=== PATIENT | female | born 1955 | race Caucasian/White ===

== ENCOUNTER 2020-11-13 15:22 | Outpatient (CLI) | payer MEDICARE, MEDICAID, SELFPAY ==
--- NOTE | 2020-11-13 15:29 | USCV_ITS ---
HessRenata quezada Age: 65 Gender: F : 1955 Exam Date: 11/13/2020 15:22 Ordering Phys: Delmi Ruiz APN Technologist: Evelyn Cadet [place] [facility] [place]: BLE PAIN RIGHT LEFT Brachial 125.00 mmHg Brachial 127.00 mmHg Pressure (mmHg) Waveform Pressure (mmHg) Waveform 109.00 MEDICAL MASSAGE THERAPIST 137.00 107.00 DPA 138.00 0.86 Ankle/Brachial Index 1.09 50.00 Pre-Exercise Toe Pressure 72.00 0.39 Pre-Exercise Toe/Brachial Index 0.57 FINDINGS Resting JERSON of 0.86 on the right side and 1.09 on the left side. Resting TBI of 0.39 on the right side and 0.57 on the left side CONCLUSIONS 1. Features of mild to moderate peripheral artery disease in the right side 2. Features of mild peripheral artery disease on the left side, involving the distal vessels. Dr Sesar Kearns MD [facility] (Electronically Signed) Final Date: 14 November 2020 00:18 S
== END 2020-11-13 15:23 | disposition home or self-care (01) ==
LOC: US 15:24
PROVIDERS: PCP Family Medicine; Visit Provider Nurse Practitioner
DX: M79.605 Pain in left leg (principal); M79.604 Pain in right leg
CPT/HCPCS: 93922

== ENCOUNTER 2023-06-23 09:46 | Outpatient (CLI) | payer MEDICARE, MEDICAID, SELFPAY ==
--- NOTE | 2023-06-23 10:08 | NMCV_ITS ---
NM alonos perf SPECT r/s* [id number] Renata Hess Age: 68 Gender: F : 1955 Exam Date: 06/23/2023 10:08 Ordering Phys: Megan Tyler MD Technologist: VICKY Gonzalez Exam Location: [facility] Indications: CHEST PAIN STRESS TEST Please see separate stress test report in [facility] for full findings IMAGE PROTOCOL Rest/Stress 1 Lexiscan Day Radiopharmaceutical Dose (mCi) Administration Site Administered by Rest: Tc-99m 10.4 IV VICKY Rapp Sestamibi Stress:Tc-99m 32.9 IV VICKY Rapp Sestamibi Rest: 23-Jun-2023 60 Discovery 630 Stress: 23-Jun-2023 30 Discovery 630 0.4mg Lexiscan. Images obtained in supine and prone position. SPECT RESULTS Technical Quality: Excellent Raw Data Analysis: Normal Image Corrections: No attenuation or motion correction applied Summed Stress Score: 5 Summed Rest Score: 7 Summed Difference Score: 0 PERFUSION FINDINGS There is a small to medium sized area of fixed perfusion defect noted in inferolateral and inferior wall. This is consistent with small to moderate sized area of prior infarct in these territories. No significant ischemia seen. FUNCTIONAL RESULTS (calculated via Gated SPECT) Stress Image LV EF (%): 75 Stress EDV (mL):65 TID: 0.79 Stress ESV (mL):16 FUNCTIONAL FINDINGS: There is normal left ventricular systolic function. IMPRESSIONS 1. Small to medium sized area of prior infarct seen in the inferior and inferolateral lockwood. No evidence of ischemia 2. LV systolic function is normal Donovan Crowley MD (Electronically Signed) Final Date: 24 June 2023 11:56 S
--- NOTE | 2023-06-23 10:08 | ECG_ITS ---
[facility] Test Date: 2023-06-23 Pat Name: Renata Hess Department: Room: Gender: Female Rail Walker: : 1955 Requested By: Megan George Order Number: [id number] Piper MD: Donovan Crowley M.D. Interpretive Statements NAME OF STUDY: LEXISCAN SESTAMIBI STRESS TEST INDICATION: [Chest Pain, ] Procedure: At the baseline, the blood pressure was 176/81 mmHg with a heart rate of 74 bpm. The electrocardiogram showed normal sinus rhythm, normal axis with normal ST and T's. The Lexiscan was infused over a period of 20 seconds. A total of 0.4 mg of Lexiscan was infused. The stress phase was continued for a total of 5 minutes. Heart rate was at the end of stress phase was 100 bpm and a blood pressure of 190/79 mmHg. The EKG at the peak infusion revealed normal sinus rhythm with no significant ST-T wave changes. Sestamibi was injected 20 seconds after the Lexiscan infusion. Blood pressure at the end of recovery phase was 181/76 mmHg with a heart rate of 94 bpm. Conclusion: 1. Normal EKG response to Lexiscan infusion 2. No Lexiscan induced chest pain or cardiac arrhythmia. 3. Normal blood pressure and heart rate response. 4. Sestamibi/sestamibi perfusion scan pending; see separate report. Electronically Signed On 06-30-2023 12:10:37 CDT by Donovan Crowley M.D. [email or web address]
[2023-06-23 10:09] VITALS: BMI 36.8
[2023-06-23] MEDS: regadenoson 0.4 Mg/5 ml Syringe 0.400000000000000022 MG IVP (11:29)
[2023-06-23 11:45] VITALS: BP 183/78; PULSE 96
== END 2023-06-23 09:47 | disposition home or self-care (01) ==
PROVIDERS: PCP Family Medicine; Visit Provider Family Medicine
DX: R07.9 Chest pain, unspecified (principal)
CPT/HCPCS: 36415; 78452; 93017; 96374; A9500; J2785

== ENCOUNTER → 2023-10-22 12:55 | Outpatient (BNVA) | payer MEDICARE, MEDICAID, SELFPAY | PROVIDERS: PCP Family Medicine; Visit Provider Internal Medicine | DX: R07.9 Chest pain, unspecified (principal); I21.29 ST elevation (STEMI) myocardial infarction involving other sites; E11.9 Type 2 diabetes mellitus without complications; I10 Essential (primary) hypertension; E78.5 Hyperlipidemia, unspecified; I73.9 Peripheral vascular disease, unspecified | CPT/HCPCS: 93005; 99204 ==

== ENCOUNTER 2023-11-14 14:29 | Outpatient (CLI) | payer MEDICARE, MEDICAID, SELFPAY ==
--- NOTE | 2023-11-14 15:00 | USCV_ITS ---
Renata Hess Age: 68 Gender: F : 1955 Exam Date: 11/14/2023 14:50 Ordering Phys: Donovan Crowley M.D ([email or web address]) Technologist: CT Exam Location[place] [facility] [place]ication: BP: 138 / 74 HR: 72 Rhythm: Sinus Technical Quality: Adequate MEASUREMENTS (Male / Female) Normal Values 2D ECHO LVOT Diameter 2.0 cm LV Ejection Fraction MOD 4C 51.4 % LV Ejection Fraction MOD 2C 70.4 % LV Ejection Fraction 2C AL 68.6 % LA Diameter 3.6 cm RA Systolic Volume 4C AL 37.7 ml RA Systolic Volume 4C MOD 36.1 ml LA Sys Volume AL 29.8 cm cubed LA Sys Volume Index AL 14.5 cm cubed/m squared Aorta at Sinotubular Diameter 2.3 cm IVC Diameter 1.7 cm M-MODE LA Ao Ratio MM 1.9 AV Cusp Separation MM 1.3 cm DOPPLER AV Peak Velocity 178.0 cm/s LVOT Peak Velocity 90.0 cm/s AV Area Cont Eq vti 1.8 cm squared AV Area Cont Eq pk 1.6 cm squared MV Peak Velocity 91.0 cm/s MV Area PHT 3.2 cm squared Mitral E to A Ratio 0.6 TV Peak Velocity 238.5 cm/s TR Peak Velocity 300.0 cm/s TR Peak Gradient 36.0 mmHg TV Peak E Velocity 72.0 cm/s Right Atrial Pressure 3.0 mmHg Pulmonary Artery Systolic Pressu 39.0 mmHg PV Peak Velocity 69.3 cm/s FINDINGS Left Ventricle Left ventricle is normal in size. LV systolic function is normal with EF of 60-65%. No regional wall motion abnormalities are seen. Grade 1 diastolic dysfunction. Right Ventricle Normal in size and function. Right Atrium Normal in size Left Atrium Normal in size Mitral Valve Mild mitral annular calcification. Mild mitral regurgitation. Aortic Valve Aortic valve is thickened. Mild aortic regurgitation. No significant stenosis Tricuspid Valve Mild tricuspid regurgitation. Insufficient TR jet to evaluate RVSP. Pulmonic Valve Not well visualized Pericardium Normal Aorta Normal in size IVC Appears to be normal CONCLUSIONS LV systolic function is normal with EF of 60 to 65%. Grade 1 diastolic dysfunction. Mild mitral regurgitation. Mild aortic regurgitation Mild tricuspid regurgitation Donovan Crowley MD (Electronically Signed) Final Date: 21 November 2023 22:23 S
== END 2023-11-14 14:30 | disposition home or self-care (01) ==
LOC: RAD 14:30
PROVIDERS: PCP Family Medicine; Visit Provider Internal Medicine
DX: I50.30 Unspecified diastolic (congestive) heart failure (principal); I35.0 Nonrheumatic aortic (valve) stenosis; R07.9 Chest pain, unspecified; R06.02 Shortness of breath
CPT/HCPCS: 93306

== ENCOUNTER 2024-01-23 11:04 | Outpatient (CLI) | payer MEDICARE, MEDICAID, SELFPAY ==
--- NOTE | 2024-01-23 11:10 | US_ITS ---
WS: [id number] US pelvic complete* [id number] TRANSVAGINAL AND TRANSABDOMINAL PELVIC ULTRASOUNDS. HISTORY: POSTMENOPAUSAL BLEEDING COMPARISON: 01/12/2014 Uterus: 7.5 cm x 4.5 cm x 3.7 cm. Normal size postmenopausal uterus is anteverted. Small nabothian cysts identified through the cervix. Hypoechoic mass with shadowing in the RIGHT uterine fundus is most likely a fibroid. Mass measures 1 .7 x 1.9 x 1.6 cm. Endometrium: 0.9 cm. Mildly enlarged heterogeneous endometrium. Endometrium is very slightly lobulate d in the mid portion towards the fundus. The junctional zone is poorly visualized. On a few images lombardi bmitted a portion of the endometrium is slightly more hyperechoic which could represent a polyp. Right ovary: 2.4 cm x 1.6 cm x 1.8 cm. Normal size and vascularity, no cystic or solid masses. Left ovary: 2.9 cm x 1.8 cm x 1.7 cm. Normal size and vascularity, no cystic or solid masses. No free fluid in the cul-de-sac. US/US pelvic complete* [id number] IMPRESSION: 1. Abnormal endometrium. Endometrium measures 9 mm with heterogeneity througho ut. In a postmenopausal patient with bleeding this is a abnormal endometrium an d needs to be further evaluated for possible neoplasm. Recommend biopsy. 2. Small uterine fibroid towards the RIGHT uterine fundus measures 1.7 x 1.9 x 1.6 cm. 3. No ovarian mass.
== END 2024-01-23 11:05 | disposition home or self-care (01) ==
LOC: RAD 11:06
PROVIDERS: PCP Family Medicine; Visit Provider Family Medicine
DX: N85.00 Endometrial hyperplasia, unspecified (principal); D25.9 Leiomyoma of uterus, unspecified; N95.0 Postmenopausal bleeding
CPT/HCPCS: 76856

== ENCOUNTER → 2024-01-28 13:35 | Outpatient (BNVA) | payer MEDICARE, MEDICAID, SELFPAY | PROVIDERS: PCP Family Medicine; Referring Provider Family Medicine; Visit Provider Obstetrics & Gynecology | DX: N95.0 Postmenopausal bleeding (principal) | CPT/HCPCS: 87624 ==

== ENCOUNTER → 2024-05-27 10:40 | Outpatient (BNVA) | payer MEDICARE, MEDICAID, SELFPAY | PROVIDERS: PCP Family Medicine; Visit Provider Podiatrist Foot & Ankle Surgery | DX: M79.672 Pain in left foot (principal); E11.42 Type 2 diabetes mellitus with diabetic polyneuropathy; L60.3 Nail dystrophy; L84 Corns and callosities; G62.9 Polyneuropathy, unspecified; Z79.4 Long term (current) use of insulin | CPT/HCPCS: 11055; 11721; 73630; 99203 ==

== ENCOUNTER 2024-06-24 13:56 | Outpatient (CLI) | payer MEDICARE, MEDICAID, SELFPAY ==
--- NOTE | 2024-06-24 13:59 | XR_ITS ---
WS: [id number] SCREENING DEXA SCAN ebindle CLINICAL INFORMATION: asymptomatic menopuasal state COMPARISON: None. FINDINGS: The L1-L4 bone mineral density measures 1.535 g/cm2. This corresponds to a T score score of 3.0 and Z score of 3.8. Left femoral neck bone mineral density measures 1.454 g/cm2. This corresponds to a T score of 3.5 and Z score of 4.4. Right femoral neck bone mineral density measures 1.382 g/cm2. This corresponds to a T score 3.0of and Z score of 3.8. Mean femoral neck bone mineral density measures 1.418 g/cm2. This corresponds to a T score of 3.3 and Z score of 4.1. XR/XR DEXA axial skeleton* 56208 IMPRESSION: Normal bone mineralization. Patient's FRAX calculated 10 year probability for major osteoporotic fracture i s 4.9% and osteoporotic hip fracture is 0.2%.
== END 2024-06-24 13:57 | disposition home or self-care (01) ==
PROVIDERS: PCP Family Medicine; Visit Provider Family Medicine
DX: Z78.0 Asymptomatic menopausal state (principal)
CPT/HCPCS: 77080

== ENCOUNTER 2024-06-29 05:49 | Day surgery (SDC) | payer MEDICARE, MEDICAID, SELFPAY ==
--- NOTE | 2024-06-28 23:59 | PM.OBGYHP ---
Providers/Chief Complaint Admitting Physician: Jose Recio MD Primary INTERMEDIATE ACCOUNTANT: Jose Recio MD Primary Care Provider: Megan Tyler MD Chief Complaint: N95.0 HPI INTERMEDIATE ACCOUNTANT History of Present Illness Renata Hess is a 69 year old female A1 With postmenopausal bleeding And abnormal pap Now scheduled for hysteroscopy, endometrial sampling, possible endometrial polypectomy; LEEP cervical excision Medications/Allergies Home Medications ?Medication ?Instructions ?Recorded ?Confirmed ?Last Taken ?Type lisinopril 20 mg tablet 20 mg PO DAILY 05/25/19 06/28/24 06/28/24 History aspirin 81 mg tablet,delayed 81 mg PO DAILY 10/15/23 06/28/24 06/28/24 History release atorvastatin 20 mg tablet 20 mg PO DAILY 10/15/23 06/28/24 06/28/24 History fluoxetine 20 mg tablet 20 mg PO DAILY 10/15/23 06/28/24 06/28/24 History insulin aspart U-100 100 unit/mL 14 unit SUBCUT TID 10/15/23 06/28/24 06/28/24 History (3 mL) subcutaneous pen (Novolog FlexPen U-100 Insulin aspart) insulin glargine 100 unit/mL (3 40 unit SUBCUT BID 10/15/23 06/28/24 06/28/24 History mL) subcutaneous pen (Lantus Solostar U-100 Insulin) pantoprazole 40 mg tablet,delayed 40 mg PO DAILY 10/15/23 06/28/24 06/28/24 History release tirzepatide 2.5 mg/0.5 mL 2.5 mg SUBCUT .WKLY 10/22/23 06/28/24 06/21/24 History subcutaneous pen injector (Mounjaro) vit D3-folic [id number] 1 tab PO .WKLY 04/14/24 05/27/24 04/11/24 History Allergies Allergy/AdvReac Type Severity Reaction Status Date / Time No Known Allergies Allergy Verified 05/27/24 10:39 PFS INTERMEDIATE ACCOUNTANT PFSH: Medical History Type 2 diabetes mellitus PVD (peripheral vascular disease) HTN (hypertension) Gastroenteritis Hyperlipidemia Primary osteoarthritis of right knee Family History Sister Breast cancer Diabetes Heart disease Hyperlipidemia Mother Diabetes Heart disease Ovarian cancer Stroke Brother Heart disease Denies family history of Colon cancer Prostate cancer Hypertension Uterine cancer Thyroid disease Social History Smoking and tobacco/nicotine status: current every day tobacco/nicotine user History History History 1 Term 0 0 Miscarriages/Ectopic 1 Living Children 0 Physical Exam Narrative: Weight 194 lbs; 5?3? General comfortable Lungs: clear Cor: RRR Abd: soft, nontender Pelvic sono 01-23-24 uterus 7.5 cm x 4.5 cm x 3.7 cm 1.9 cm fibroid Endometrium 9 mm, heterogeneous Normal ovaries Pap 01-28-24 LGSIL, + HPV Results Labs OB ([facility]): Pap Smear Interpret See note A 01/28/24 A&P Assessment and plan (1) Postmenopausal bleeding: plan hysteroscopy, endometrial sampling, possible endometrial polypectomy explained. Procedures and risks explained to patient, including, but not limited to, risks of infection, bleeding, injury to internal organs, anesthesia, blood transfusions. One particular risk is that, in the process of dilating the cervix, the dilating instrument may perforate the uterus. Usually, the uterus heals spontaneously without any complications. Patient understands and wants to proceed with hysteroscopy, endometrial sampling, and possible endometrial polypectomy under anesthesia (2) Abnormal Pap smear of cervix: Plan LEEP cervical excision PDMP PDMP Reviewed: Not Reviewed Attestations Medical Necessity Statement*: patient with postmenopausal bleeding and abnormal pap of cervix, now scheduled for hysteroscopy, endometrial sampling and polypectomy, and electrosurgical loop excision of the cervix Coding Level of Care Code Acute Code for Chg Fwd Diagnoses Postmenopausal bleeding N95.0 Abnormal Pap smear of cervix R87.619 Time Spent (min) 30
[2024-06-29] VITALS (8 sets, daily range): BP systolic 126–175; BP diastolic 81–110; PULSE 67–103; RESP 14–18; TEMP 36.6; O2SAT 92–99; BMI 35.0
[2024-06-29] MEDS: sodium chloride 0.9% 1,000 ML 30 ML IV (06:17)
[2024-06-29 06:19] LABS: Glucose Point of Care 188 mg/dL (70-110)
--- NOTE | 2024-06-29 06:52 | W.PM.OPSUD ---
Surgery/Procedure H&P Update DATE OF PROCEDURE: June 29, 2024 DATE H&P PERFORMED: 06/29/24 H&P UPDATE INFORMATION: I have reviewed H&P completed within last 30 days, I have examined patient prior to procedure and No changes to prior documentation PREOP DIAGNOSIS: postmenopausal bleeding; abnormal pap PLANNED PROCEDURE: Operation Date: 06/29/24 07:00 Proposed Procedures p Hysteroscopy w/ Endometrial Sampling 75360, N95.0(Not Applicable) - Jose Recio MD s Poylpectomy(Not Applicable) - Jose Recio MD
--- NOTE | 2024-06-29 06:54 | ANES.PREANE2 ---
Pre-Anesthetic Assessment Height/Weight: Height 1.6 m Weight 89.811 kg Temp Pulse Resp BP Pulse Ox O2 Del Method 97.8 F 67 16 175/84 97 Room Air 06/29/24 06:08 06/29/24 06:08 06/29/24 06:08 06/29/24 06:08 06/29/24 06:08 06/29/24 06:08 Preop Diagnosis: postmenopausal bleeding; abnormal pap Operation Date: 06/29/24 07:00 Proposed Procedures p Hysteroscopy w/ Endometrial Sampling 17931, N95.0(Not Applicable) - Jose Recio MD s Poylpectomy(Not Applicable) - Jose Recio MD Familial anesthetic complications: None Was Beta Lizz taken within 24 hours: N/A Was Clonidine taken within 24 hours: N/A Last intake: Intake Last Liquid Date 06/28/24 Last Liquid Time 19:00 Last Solid Date 06/28/24 Last Solid Time 19:00 Social Tobacco and No alcohol Exam alert, oriented x 3, clear to auscultation bilaterally and regular rate & rhythm Airway Mallampati: Class II Dentition: other (no teeth) CV/HEM Hypertension GI Gastroesophageal Reflux Disease Metabolic Diabetes Mellitus and Hyperlipidemia Anesthetic Plan ASA status: 3 Anesthesia: General Risk of > 500 ml blood loss (7ml/kg in children): No Medications/Allergies Home Medications ?Medication ?Instructions ?Recorded ?Confirmed ?Last Taken ?Type lisinopril 20 mg tablet 20 mg PO DAILY 05/25/19 06/28/24 06/28/24 History aspirin 81 mg tablet,delayed 81 mg PO DAILY 10/15/23 06/28/24 06/28/24 History release atorvastatin 20 mg tablet 20 mg PO DAILY 10/15/23 06/28/24 06/28/24 History fluoxetine 20 mg tablet 20 mg PO DAILY 10/15/23 06/28/24 06/28/24 History insulin aspart U-100 100 unit/mL 14 unit SUBCUT TID 10/15/23 06/28/24 06/28/24 History (3 mL) subcutaneous pen (Novolog FlexPen U-100 Insulin aspart) insulin glargine 100 unit/mL (3 40 unit SUBCUT BID 10/15/23 06/28/24 06/28/24 History mL) subcutaneous pen (Lantus Solostar U-100 Insulin) pantoprazole 40 mg tablet,delayed 40 mg PO DAILY 10/15/23 06/28/24 06/28/24 History release tirzepatide 2.5 mg/0.5 mL 2.5 mg SUBCUT .WKLY 10/22/23 06/28/24 06/21/24 History subcutaneous pen injector (Bridget) vit D3-folic [id number] 1 tab PO .WKLY 04/14/24 05/27/24 04/11/24 History Allergies Allergy/AdvReac Type Severity Reaction Status Date / Time No Known Allergies Allergy Verified 05/27/24 10:39 Current Medications Generic Name Dose Route Start Last Admin Trade Name Freq PRN Reason Stop Dose Admin Sodium Chloride 1,000 mls @ 30 mls/hr 06/29/24 06:00 06/29/24 06:17 Sodium Chloride 0.9% IV 06/30/24 05:59 30 mls/hr .Q24H DEON Administration PFSH Anesthesia Medical History Type 2 diabetes mellitus PVD (peripheral vascular disease) HTN (hypertension) Gastroenteritis Hyperlipidemia Primary osteoarthritis of right knee Family History Sister Breast cancer Diabetes Heart disease Hyperlipidemia Mother Diabetes Heart disease Ovarian cancer Stroke Brother Heart disease Denies family history of Colon cancer Prostate cancer Hypertension Uterine cancer Thyroid disease Social History Smoking and tobacco/nicotine status: current every day tobacco/nicotine user Data Anesthesia Cardiac Studies: Echocardiogram 11/14/23 Sestamibi Stress Test (Cardiology) 06/23/23
--- NOTE | 2024-06-29 08:10 | PM.OP ---
Operative Report Date of procedure: June 29, 2024 Pre-op diagnosis: postmenopausal bleeding Post-op diagnosis: same Post-op findings: Endometrial cavity sounded to 9 cm Moderate amount of endometrial tissue No polyps / fibroids Procedure done: hysteroscopy Curettage of uterus Implants: none Specimens removed/disposition: endometrial tissue Surgeon: Jose Recio MD Anesthesia: MAC Estimated blood loss (mL): 0 Complications: none Findings: Endometrial cavity sounded to 9 cm Moderate amount of endometrial tissue No polyps / fibroids Condition: stable Disposition: PACU Brief History: 69 y.o. with postmenopausal bleeding Procedure: Informed consent signed. Patient was taken to the operating room. Anesthesia was induced. Patient was placed in dorsolithotomy position, prepped and draped for hysteroscopy. A bivalve speculum was placed in the vagina. The anterior lip of the cervix was grasped with a sharp-toothed tenaculum. The cervix was serially dilated with Hegar dilators. . A hysteroscope was placed into the endometrial cavity. The endometrial cavity was seen to have a moderate amount of endometrial tissue. There were no polyps or fibroids. The hysteroscope was then removed. Endometrial curettage was done with a sharp curette. Endometrial tissue was sent to pathology. The sharp-toothed tenaculum was removed. There was no bleeding from the endometrial cavity or cervix. The patient was then placed supine and awakened and taken to the PACU. Postop condition: stable EBL: none Sponge and instruments counts were normal x 2 Complications: none
[2024-06-29] MEDS: hyDRALAzine 20 mg/mL INJ 1 mL (08:22)
--- NOTE | 2024-06-29 09:00 | ANE.PACU2 ---
Inpatient post-anesthesia follow up: Airway intact: Yes Vital signs: Temperature 98 F Pulse Rate 99 Respiratory Rate 17 Blood Pressure 137/81 Pulse Oximetry 96 Oxygen Delivery Me thod Room Air Oxygen Flow Rate 6 Fraction of Inspir ed Oxygen Hydration adequate: Yes Nausea and vomiting: No Pain level: 1 Mental status: Baseline
== END 2024-06-29 09:00 | disposition home or self-care (01) ==
PROVIDERS: PCP Family Medicine; Visit Provider Obstetrics & Gynecology
PROC: 0UJD8ZZ Inspection of Uterus and Cervix, Via Natural or Artificial Opening Endoscopic (ICD-10-PCS; CPT 58555; principal; 2024-06-29 07:00)
DX: N95.0 Postmenopausal bleeding (principal); E11.51 Type 2 diabetes mellitus with diabetic peripheral angiopathy without gangrene; R87.619 Unspecified abnormal cytological findings in specimens from cervix uteri; F17.200 Nicotine dependence, unspecified, uncomplicated; E78.5 Hyperlipidemia, unspecified; K21.9 Gastro-esophageal reflux disease without esophagitis; I10 Essential (primary) hypertension; Z79.899 Other long term (current) drug therapy; Z79.85 Long-term (current) use of injectable non-insulin antidiabetic drugs; Z79.82 Long term (current) use of aspirin; Z79.4 Long term (current) use of insulin
CPT/HCPCS: 58558; 36416; 82962; 88305; A4216; J0360; J1100; J1885; J2405; J2704; J2765; J3010; J3490; J7030; J9999

== ENCOUNTER → 2024-07-29 10:38 | Outpatient (BNVA) | payer MEDICARE, MEDICAID, SELFPAY | PROVIDERS: PCP Family Medicine; Visit Provider Podiatrist Foot & Ankle Surgery | DX: E11.42 Type 2 diabetes mellitus with diabetic polyneuropathy (principal); L60.3 Nail dystrophy; L84 Corns and callosities; G62.9 Polyneuropathy, unspecified; Z79.4 Long term (current) use of insulin | CPT/HCPCS: 11056; 11721 ==

== ENCOUNTER → 2024-08-05 14:14 | Outpatient (BNVA) | payer MEDICARE, MEDICAID, SELFPAY | PROVIDERS: PCP Family Medicine; Visit Provider Obstetrics & Gynecology | DX: Z12.4 Encounter for screening for malignant neoplasm of cervix (principal) | CPT/HCPCS: 87624 ==

== ENCOUNTER → 2024-10-07 09:33 | Outpatient (BNVA) | payer MEDICARE, MEDICAID, SELFPAY | PROVIDERS: PCP Family Medicine; Visit Provider Podiatrist Foot & Ankle Surgery | DX: E11.42 Type 2 diabetes mellitus with diabetic polyneuropathy (principal); L60.3 Nail dystrophy; L84 Corns and callosities; E11.9 Type 2 diabetes mellitus without complications; I73.9 Peripheral vascular disease, unspecified; G62.9 Polyneuropathy, unspecified; Z79.4 Long term (current) use of insulin | CPT/HCPCS: 11056; 11721 ==

== ENCOUNTER 2025-01-07 10:04 | Outpatient (CLI) | payer MEDICARE, MEDICAID, SELFPAY ==
--- NOTE | 2025-01-07 10:12 | CT_ITS ---
WS: [id number] LDCT LUNG CANCER SCREENING TECHNIQUE: Noncontrast CT of the chest with coronal and sagittal reformatted images. CLINICAL INFORMATION: NICOTINE DEPENDENCE,CIGARETTES COMPARISON: None. DLP: 79.39 mGy.cm DIvol: Mean CTDIvol: 1.80 (mGy) All CT scans at [facility] use at least one of these dose optimization techniques: automated exposure control; mA and/or kV adjustment per patient size (includes targeted exams where dose is matched to clinical indication); or iterative reconstruction. FINDINGS: 4 mm noncalcified nodule RIGHT lung apex. Noncalcified nodule RIGHT middle lobe measuring 5 mm. Subsegmental atelectasis in the RIGHT middle lobe. Small noncalcified subpleural nodule RIGHT lower lobe. Aortic calcification. Coronary calcification. No mediastinal or hilar lymphadenopathy. No axillary lymphadenopathy. Adrenal glands are normal. Benign calcification LEFT adrenal gland. Normal GE junction. Bilateral mastectomy. CT/CT lung screening [id number] IMPRESSION: LUNG-RADS: 2-Benign Appearance or Behavior FOLLOW UP: 12 Month: Continue annual screening with LDCT
== END 2025-01-07 10:05 | disposition home or self-care (01) ==
LOC: RAD 10:05
PROVIDERS: PCP Nurse Practitioner Family; Visit Provider Nurse Practitioner Family
DX: F17.210 Nicotine dependence, cigarettes, uncomplicated (principal); Z12.2 Encounter for screening for malignant neoplasm of respiratory organs; I70.0 Atherosclerosis of aorta; J98.11 Atelectasis; R91.8 Other nonspecific abnormal finding of lung field; D35.02 Benign neoplasm of left adrenal gland; Z90.13 Acquired absence of bilateral breasts and nipples
CPT/HCPCS: 71271

== ENCOUNTER → 2025-01-27 09:57 | Outpatient (BNVA) | payer MEDICARE, MEDICAID, SELFPAY | PROVIDERS: PCP Nurse Practitioner Family; Visit Provider Podiatrist Foot & Ankle Surgery | DX: E11.8 Type 2 diabetes mellitus with unspecified complications (principal); L60.3 Nail dystrophy; L84 Corns and callosities; E11.9 Type 2 diabetes mellitus without complications; G62.9 Polyneuropathy, unspecified; I73.9 Peripheral vascular disease, unspecified; E11.42 Type 2 diabetes mellitus with diabetic polyneuropathy; Z79.4 Long term (current) use of insulin | CPT/HCPCS: 11056; 11721 ==